=== PATIENT | female | born 2000 | race Caucasian/White ===

== ENCOUNTER 2023-10-10 12:02 | Emergency (ER) | payer MEDICAID ==
[~2023-10-10] VITALS: Ht 160 cm; Wt 81.6 kg
[2023-10-10 12:08] VITALS: BP 114/52; PULSE 86; TEMP 98.4; O2SAT 100
[2023-10-10 12:42] VITALS: RESP 18
--- NOTE | 2023-10-10 12:45 | NUR ---
I have reviewed and agree with all interventions, assessments performed and documented by VERA Hoskins.
[2023-10-10] MEDS ORDERED: AMOX-117 PO (13:12)
[2023-10-10] MEDS ORDERED: TETanus/Pertussis (Acell)/Diphther VAC/PF (Tdap-Adult) 0.5ml syringe IMVAC ONE (13:15)
== END 2023-10-10 13:56 | disposition home or self-care (01) ==
LOC: ER 12:02
DX: S60.222A Contusion of left hand, initial encounter (principal); X58.XXXA Exposure to other specified factors, initial encounter; Y93.89 Activity, other specified; Y92.89 Other specified places as the place of occurrence of the external cause; Y99.8 Other external cause status
CPT/HCPCS: 73130; 90471; 90715; 99283